=== PATIENT | male | born 1985 | race Caucasian/White ===

== ENCOUNTER 2024-01-04 16:24 | Inpatient (IN) | payer BC, SELFPAY ==
[2024-01-04] VITALS (9 sets, daily range): BP systolic 118–143; BP diastolic 71–92; BMI 38.5; BMI 37.6
--- NOTE | 2024-01-04 11:54 | ED.GENMED ---
History of Present Illness
<Evelyn Thakur PA-C - Last Filed: 01/04/24 18:14>
General
Chief Complaint: Skin Problem
Source: patient
Exam Limitations: none
Time Seen by Provider: 01/04/24 11:48
Nursing documentation reviewed up to this point in time: agreed with
Travel History
Have you had any contact with someone who has COVID-19?: No
Do you have any symptoms of coronavirus? Fever > 100 degrees, chills, cough, shortness of breath, sore throat, loss of taste or smell, muscle aches, or headache?: No
History of Present Illness
History of Present Illness:
Patient is a 38-year-old male presenting to the emergency department for evaluation of right lower leg pain and swelling. Patient reports initially noticed some pain in his right lower extremity yesterday with a few episodes of vomiting. He was
seen by a local urgent care without any skin findings and discharged. Patient says that today he woke up and noticed redness spreading around his right calf with a new patch popping up on his right medial thigh. He endorses significant fevers and
chills and pain in his right lower extremity. Patient denies any chest pain or shortness of breath. Patient denies any nausea or vomiting since yesterday. Patient denies any numbness/tingling in right lower extremity.
Patient has been taking doxycycline for the past week as prescribed by his PCP for suspected developing cellulitis
Patient reports significant history of cellulitis in his right lower extremity, requiring IV antibiotics on multiple occasions. Most recently�she was discharged from the hospital after 7 days of IV vancomycin/Rocephin for very similar right lower
extremity cellulitis.
Patient denies any current smoking or history of IV drug use. Patient is not a diabetic.
Patient does live in [place], [place] and is here visiting currently.
Review of Systems
<Evelyn Thakur PA-C - Last Filed: 01/04/24 18:14>
Review of Systems
Allergies reviewed?: Yes
All Other Systems: ROS reviewed and negative except as documented in HPI and ROS
Phy Exam
<Evelyn Thakur PA-C - Last Filed: 01/04/24 18:14>
Physical Exam
Physical Exam:
Vitals: Temp of 103.2, tachycardic to 129. Otherwise vital signs stable
General: Patient is diaphoretic, appears mildly uncomfortable.
Skin: Erythema of right lower leg extending from ankle to mid calf. 1 small area of erythema noted just above right knee on medial aspect of right thigh. Mild warmth and tenderness of right lower extremity noted.
Head: Normocephalic, atraumatic
Eyes: Sclera nonicteric. EOMs intact. No nystagmus. Pupils equal round and reactive light bilaterally
Throat: Protecting airway
Neck: Normal ROM, no cervical spine tenderness, no meningismus. Trachea midline
Cardiac: Regular rate and rhythm, no murmurs.
Pulm: Normal respiratory effort, no wheezes, rales, rhonchi heard on exam.
Abdomen: Abdomen soft. No abdominal tenderness.
Extremities: Erythematous rash as noted above. Bilateral upper and lower extremities atraumatic with full range of motion. great distal pulses in bilateral lower extremities with normal sensation.
Neuro: AAOx3. CN II-XII intact. No focal neurologic deficits.
Psychiatric: Normal affect.
Course
<Evelyn Thakur PA-C - Last Filed: 01/04/24 18:14>
Orders/Labs/Results
Orders:
Orders
01/04/24 Lunch
Regular
At Your Request: Full Participation
01/04/24 12:18
0.9% Sodium Chloride 1000 ml [Nss] 1,000 ml IV BOLUS
Ketorolac [Toradol] 15 mg IV NOW STA
01/04/24 12:22
Acetaminophen [Tylenol] 650 mg PO NOW STA
01/04/24 12:36
Complete Blood Count/With Diff Urgent
Comprehensive Metabolic Panel Urgent
Lactic Acid Q4H
Comment: CANCEL 2nd LACTIC ACID IF 1st LACTIC ACID IS LESS THAN 2
Blood Culture Q30M
SMITH Source: Blood/Venous
Specimen Description:
01/04/24 12:57
Blood Culture Q30M
SMITH Source: Blood/Venous
Specimen Description:
01/04/24 13:08
Vancomycin [Vancocin] 1,500 mg 0.9% Sodium Chloride [Nss] 20 ml 0.9% Sodium Chloride 250 ml [Nss] 250 ml IV NOW
01/04/24 13:47
Ketorolac [Toradol] 15 mg IV NOW STA
01/04/24 14:02
INFECTIOUS DISEASE CONSULT Routine
Consulting Provider: Monica Beckett
Was physician already notified: Yes
01/04/24 16:00
Admit/Transfer Patient As Directed
Co-Sign Provider:
Level of Care: Inpatient admission
Assign to:: Medical/Surgical
Physician / Group: Alberto shiists
Diagnosis: RLE cellulitis
Reason for Hospitalization: RLE Cellulitis - IV Abx and ID evaluation
Expected length of stay greater than two midnights?: Yes
ELOS- Estimated Length of Stay in days: 2
I certify the patient meets the requirements for IP care: Yes
01/04/24 16:11
Code Status As Directed
Resuscitation Status: Full Code
01/04/24 16:16
MRSA Screen Routine
SMITH Source: Nose
Specimen Description:
01/04/24 17:16
Acetaminophen [Tylenol] 650 mg PO Q6HPRN PRN
Bisacodyl [Dulcolax] 10 mg RECTAL [id number] PRN
Docusate W/Senna [Senokot-S] 1 tablet PO BIDPRN PRN
Ondansetron Injectable [Zofran] 4 mg IV Q6HPRN PRN
Tramadol HCl [Ultram] 50 mg PO Q6HPRN PRN
01/04/24 17:16
Activity As Directed
Activity Level: As Tolerated
Vital Signs As Directed
Frequency: Per unit guidelines
DX Deep Vein Thrombosis Video Routine
01/04/24 18:00
Enoxaparin Sodium [Lovenox] 40 mg SC QPM
01/05/24 06:00
Basic Metabolic Panel IN AM
Complete Blood Count/No Diff IN AM
Hemoglobin A1c [Glycohemoglobin (HgbA1c)] IN AM
Abnormal Lab Results
01/04/24
12:36
WBC 17.1 H 10^3/uL
(4.8-10.8)
MCH 31.4 H pg
(27.0-31.0)
Abs Immat Gran (auto) 0.1 H 10^3/uL
(0-0.05)
Absolute Neuts (auto) 15.0 H 10^3/uL
(1.4-6.5)
Absolute Lymphs (auto) 0.9 L 10^3/uL
(1.2-3.4)
Absolute Monos (auto) 1.2 H 10^3/uL
(0.1-0.6)
Neutrophils % 87.3 H %
(42.2-75.2)
Lymphocytes % 5.4 L %
(20.5-51.1)
Sodium 134 L mmol/L
(135-145)
Glucose 110 H mg/dl
(70-99)
ALT 77 H U/L
(0-50)
01/04/24 12:36
01/04/24 12:36
Vital Signs
Initial and Last Documented VS:
Initial Vital Signs
Temp Pulse Resp BP Pulse Ox
103.2 F H 129 20 138/92 97
01/04/24 11:27 06/18/24 11:27 01/04/24 11:27 01/04/24 11:27 01/04/24 11:27
Last Documented Vital Signs
Temp Pulse Resp BP Pulse Ox
98.5 F 88 16 132/83 97
01/04/24 17:13 01/04/24 17:13 01/04/24 17:13 01/04/24 17:13 01/04/24 17:30
<Wilson Medeiros DO - Last Filed: 01/04/24 12:52>
Orders/Labs/Results
Orders:
Orders
01/04/24 Lunch
Regular
At Your Request: Full Participation
01/04/24 12:18
0.9% Sodium Chloride 1000 ml [Nss] 1,000 ml IV BOLUS
Ketorolac [Toradol] 15 mg IV NOW STA
01/04/24 12:22
Acetaminophen [Tylenol] 650 mg PO NOW STA
01/04/24 12:36
Complete Blood Count/With Diff Urgent
Comprehensive Metabolic Panel Urgent
Lactic Acid Q4H
Comment: CANCEL 2nd LACTIC ACID IF 1st LACTIC ACID IS LESS THAN 2
Blood Culture Q30M
MSITH Source: Blood/Venous
Specimen Description:
01/04/24 12:57
Blood Culture Q30M
SMITH Source: Blood/Venous
Specimen Description:
01/04/24 13:08
Vancomycin [Vancocin] 1,500 mg 0.9% Sodium Chloride [Nss] 20 ml 0.9% Sodium Chloride 250 ml [Nss] 250 ml IV NOW
01/04/24 13:47
Ketorolac [Toradol] 15 mg IV NOW STA
01/04/24 14:02
INFECTIOUS DISEASE CONSULT Routine
Consulting Provider: Monica Beckett
Was physician already notified: Yes
01/04/24 16:00
Admit/Transfer Patient As Directed
Co-Sign Provider:
Level of Care: Inpatient admission
Assign to:: Medical/Surgical
Physician / Group: Alberto Castañeda - hospitalists
Diagnosis: RLE cellulitis
Reason for Hospitalization: RLE Cellulitis - IV Abx and ID evaluation
Expected length of stay greater than two midnights?: Yes
ELOS- Estimated Length of Stay in days: 2
I certify the patient meets the requirements for IP care: Yes
01/04/24 16:11
Code Status As Directed
Resuscitation Status: Full Code
01/04/24 16:16
MRSA Screen Routine
SMITH Source: Nose
Specimen Description:
01/04/24 17:16
Acetaminophen [Tylenol] 650 mg PO Q6HPRN PRN
Bisacodyl [Dulcolax] 10 mg RECTAL [id number] PRN
Docusate W/Senna [Senokot-S] 1 tablet PO BIDPRN PRN
Ondansetron Injectable [Zofran] 4 mg IV Q6HPRN PRN
Tramadol HCl [Ultram] 50 mg PO Q6HPRN PRN
01/04/24 17:16
Activity As Directed
Activity Level: As Tolerated
Vital Signs As Directed
Frequency: Per unit guidelines
DX Deep Vein Thrombosis Video Routine
01/04/24 18:00
Enoxaparin Sodium [Lovenox] 40 mg SC QPM
01/05/24 06:00
Basic Metabolic Panel IN AM
Complete Blood Count/No Diff IN AM
Hemoglobin A1c [Glycohemoglobin (HgbA1c)] IN AM
Abnormal Lab Results
01/04/24
12:36
WBC 17.1 H 10^3/uL
(4.8-10.8)
MCH 31.4 H pg
(27.0-31.0)
Abs Immat Gran (auto) 0.1 H 10^3/uL
(0-0.05)
Absolute Neuts (auto) 15.0 H 10^3/uL
(1.4-6.5)
Absolute Lymphs (auto) 0.9 L 10^3/uL
(1.2-3.4)
Absolute Monos (auto) 1.2 H 10^3/uL
(0.1-0.6)
Neutrophils % 87.3 H %
(42.2-75.2)
Lymphocytes % 5.4 L %
(20.5-51.1)
Sodium 134 L mmol/L
(135-145)
Glucose 110 H mg/dl
(70-99)
ALT 77 H U/L
(0-50)
01/04/24 12:36
01/04/24 12:36
Vital Signs
Initial and Last Documented VS:
Initial Vital Signs
Temp Pulse Resp BP Pulse Ox
103.2 F H 129 20 138/92 97
01/04/24 11:27 01/04/24 11:27 01/04/24 11:27 01/04/24 11:27 01/04/24 11:27
Last Documented Vital Signs
Temp Pulse Resp BP Pulse Ox
98.5 F 88 16 132/83 97
01/04/24 17:13 01/04/24 17:13 01/04/24 17:13 01/04/24 17:13 01/04/24 17:30
<Evelyn Thakur PA-C - Last Filed: 01/04/24 18:14>
MDM/Problems Addressed
Differential Diagnosis Includes:
Not limited to: Cellulitis, zoster, atopic dermatitis, contact dermatitis, fungal infection
MDM/Problems Addressed:
38-year-old male presenting with recurrent cellulitis requiring IV antibiotics of right lower extremity with associated fever and vomiting. Patient is febrile to 103.2 on arrival and tachycardic to 129. Physical exam as above. He is diaphoretic
and mildly uncomfortable appearing�although does appear nontoxic. There is erythema noted to his right lower extremity with some streaking up to right distal medial thigh. Some warmth and tenderness noted as well. Great distal pulses of right
lower extremity and sensation fully intact. Labs reviewed which show a leukocytosis of 17.1 with a left shift. No other clinically significant abnormalities. Given leukocytosis in setting of fever and likely cellulitis�will admit for IV
antibiotics. Blood cultures were sent. Patient given Tylenol for fever. IV fluids. Patient started on vancomycin. Infectious disease was consulted. Patient admitted and discussed with hospitalist.
Chronic conditions affecting care:
Recurrent cellulitis
Acute Exacerbation and/or Progression of Chronic Illness:
Cellulitis right lower leg
<Evelyn Thakur PA-C - Last Filed: 01/04/24 18:14>
*Pulse Oximetry
Patient hypoxic: no
*EKG
Interpreted by ED Provider?: NA
*Abrasive Mixer Interpretation
Rate: tachycardiac
Interpretation: normal
Heart Rate: 120
Rhythm: sinus
*Critical Care Note
Total Time (30-74mins, 75-104mins- exclusive of procedures): Not Applicable
<Evelyn Thakur PA-C - Last Filed: 01/04/24 18:14>
Patient Management
Discussion with other providers: Hospitalist and Industrial Economics Teacher (Infectious disease)
Escalation/DeEscalation of care consider admission/obs:
Admit for IV antibiotics
ED Attending Note
<Evelyn Thakur PA-C - Last Filed: 01/04/24 18:14>
-
Portions of this chart may have been created with voice recognition software.� Occasional wrong word or��sound alike� substitutions may have occurred due to the inherent limitations of voice recognition software.
<Wilson Medeiros DO - Last Filed: 01/04/24 12:52>
ED Attending Note
Patient seen and examined by attending physician: Yes
I performed the substantive portion of visit, reviewed & personally made and approve the management plan that is documented in note by myself or LATASHA.: Yes
ED Attending Note:
Patient is a 38-year-old male who presents to the emergency department with a 103 as well as redness on his right lower extremity. Patient has had this intermittently on his right lower leg for 8 years. Patient's had MRIs and other assessments
that does not show a reason. Patient is not diabetic. Patient stopped smoking about 8 years ago. Patient denies any trauma. Patient just finished being hospitalized for this in October. On physical exam patient does not appear to be in any
distress there is erythema on the right distal anterior thigh as well as the right lower leg. Given the patient's temperature and recent intravenous antibiotic patient will be admitted for cellulitis.
Discharge Plan
Departure
Patient Disposition: Admit
Date of Disposition: 01/04/24
Time of Disposition: 13:44
Presentation/result/management discussed w/ accepting MD/DO: Hospitalist
Discharge Problem:
Cellulitis of right lower extremity
Interventions
Interventions:
*Risk Screen - Suicide Last Done: 01/04/24 13:04
*General Assessment Last Done: 01/04/24 13:04
*Neglect/Abuse Screening Last Done: 01/04/24 13:04
ED- Fall Risk Assessment Last Done: 01/04/24 12:40
*ED COVID-19 Vaccine History Last Done: 01/04/24 11:27
*Nursing Disposition Last Done: 01/04/24 17:05
ED-Skin Assessment Last Done: 01/04/24 12:51
Discharge Date and Time
Discharge Date/Time: 01/04/24 17:05
[2024-01-04] MEDS: TYLENOL 650 MG PO (12:32)
[2024-01-04] MEDS: NSS 1000 IV (12:33)
[2024-01-04 12:57] LABS: Lactic Acid 1.5 mmol/L (0.7-2.0)
[2024-01-04 12:58] LABS: ALT (SGPT) 77 U/L (0-50); AST (SGOT) 43 U/L (17-59); Albumin 4.5 g/dl (3.5-5.0); Alkaline Phosphatase 71 U/L (38-126); Blood Urea Nitrogen 13 mg/dl (9-20); Calcium 9.5 mg/dl (8.4-10.2); Carbon Dioxide 25 mmol/L (22-30); Chloride 99 mmol/L (98-107); Estimated Creatinine Clearance > 125 ml/min; Glucose 110 mg/dl (70-99); Potassium 3.9 mmol/L (3.5-5.1); Sodium 134 mmol/L (135-145); Total Bilirubin 1.2 mg/dl (0.2-1.3); Total Protein 7.7 g/dl (6.3-8.2); eGFR > 60.00
[2024-01-04 13:05] LABS: % Basophils 0.1 % (0-2); % Immature Granulocytes 0.4 % (0-0.5); % Lymphocytes 5.4 % (20.5-51.1); % Monocytes 6.8 % (1.7-9.3); % Neutrophils 87.3 % (42.2-75.2); Absolute Immature Granulocytes 0.1 10^3/uL (0-0.05); Absolute Lymphocytes 0.9 10^3/uL (1.2-3.4); Absolute Monocytes 1.2 10^3/uL (0.1-0.6); Hematocrit 45.6 % (39.0-52.0); Mean Corp Hgb Conc. 35.1 g/dL (33.0-37.0); Mean Corpuscular Hgb 31.4 pg (27.0-31.0); Mean Corpuscular Volume 89.6 fL (80.0-94.0); Mean Platelet Volume 10.3 fL (7.4-10.4); Nucleated Red Blood Cells % 0 % (-); Platelet Count 217 10^3/uL (130-400); Red Blood Cell Count 5.09 10^6/uL (4.70-6.10); Red Cell Dist. Width 12.1 % (11.5-14.5); White Blood Cell Count 17.1 10^3/uL (4.8-10.8)
[2024-01-04] MEDS: TORADOL 15 MG IV (14:03)
[2024-01-04] MEDS: VANCOCIN 300 ML IV (14:04)
[2024-01-04] MEDS: VANCOCIN 300 MG IV (14:04)
--- NOTE | 2024-01-04 15:40 | HPS.HSE ---
Family Physician
-
Family Physician: * NONE
Chief Complaint
-
RLE redness swelling
History of Present Illness
38 y/o M, hx of recurrent RLE cellulitis, currently on Doxycycline by PCP (in [place]) presents to ER for RLE cellulitis. He is visiting family in [place]. He reports redness began a few days along lower RLE at his usual cellulitis spot but progressed up
his leg. He also reports some pain, swelling. Subjective fevers. no chills. No other complaints. Denies any trauma or work related injuries, no cuts or lesions he can recall.
Has previously had 5 prior episodes and has been worked up back in [place] with negative US and no clear etiology for his recurrent RLE cellulitis.
In ER here, given IV Abx and admitted.
Medical History
Past Medical History
Past Medical History: Reports Other (recurrent RLE cellulitis)
Past Surgical History: Reports None
Social History
Tobacco: Former Smoker (has not smoked in 7 years)
Alcohol: None
Drug: None
Personal:
Living: With Family
Employment: Employed ([employer])
Family History
Family History: Not pertinent
Allergies / Home Medications
Allergies reflects when Allergies were last updated in [facility].
Home Medications with original date entered in [facility]
Allergy/Medication List:
Allergies
Allergy/AdvReac Type Severity Reaction Status Date / Time
No Known Allergies Allergy Unverified 01/04/24 11:28
Home Medications
acetaminophen 325 mg tablet (Tylenol) 650 mg PO Q6HPRN PRN mild pain 01/04/24
doxycycline hyclate 100 mg tablet 100 mg PO BID 01/04/24
ondansetron 8 mg disintegrating tablet 8 mg PO Q8H 01/04/24
terbinafine HCl 250 mg tablet 250 mg PO DAILY 01/04/24
Review of Systems
-
A 12 point ROS was completed and negative except as noted: Yes
Physical Exam
Vital Signs
Vital Signs
Temp Pulse Resp BP Pulse Ox
99.3 F 93 22 118/83 96
01/04/24 14:07 01/04/24 15:00 01/04/24 15:00 01/04/24 15:00 01/04/24 15:00
Physical Exam
General: No Apparent Distress and Obese
HEENT: NormoCephalic and Anicteric
Respiratory: No Wheezes
Cardiac: S1/S2 and Regular Rhythm
GI: Soft and Non Tender
Musculoskeletal: Other (RLE cellulitis streaking to the R thigh)
Neuro: AO x 3
Hematologic/Lymphatic: No Lymphadenopathy
Psych: Calm
Laboratory Results
-
01/04/24 12:36
01/04/24 12:36
Laboratory Results
Lactic Acid Cancelled 01/04/24 16:30
Total Bilirubin 1.2 mg/dl (0.2-1.3) 01/04/24 12:36
AST 43 U/L (17-59) 01/04/24 12:36
ALT 77 U/L (0-50) H 01/04/24 12:36
Alkaline Phosphatase 71 U/L (38-126) 01/04/24 12:36
Data Reviewed
-
Lab Data: Labs Reviewed by me
Impression/Plan
-
Assessment:
Recurrent RLE cellulitis
- check MRSA
- follow blood cultures
- asked RN to edgardo cellulitis borders
- start Vancomycin
- start Ancef
- ID consult
Obesity d/t excess calories
- check A1c
- encourage weight loss f/u in [place]
DVT ppx: Lovenox
Code: Full
--- NOTE | 2024-01-04 16:06 | CON.ID ---
Consultation
-
Date/Time Consultation Requested: January 04, 2024 1400
Date/Time Consultation Performed: January 04, 2024 1600
Requesting Provider: Evelyn Thakur PA-c
Performing Provider: Dr. Monica Beckett
Reason for Consultation: Recurrent leg cellulitis
Chief Complaint / Past History
Chief Complaint
Fever and right leg redness
History of Present Illness
History obtained from the patient as well as from his at bedside. He is a 38-year-old male who is from [place], currently on vacation in [place] without significant past medical history except for recurrent cellulitis since 8 years ago. He
has had 5 episodes of right leg cellulitis, the last 3 since October 2023. In October he had severe right leg cellulitis hospitalized in [place] and received 7 days of Vancomycin + ceftriaxone x 7 days. Workup included peripheral venous ultrasound as
well as MRI of the leg, both of which were negative. He was discharged on doxycycline x 7 days. The cellulitis resolved. In early December, he again developed cellulitis on his right contreras. He saw his PCP on December 26 who prescribed doxycycline x 10
days. He also prescribed oral terbinafine for athlete's foot. The cellulitis initially did improve. However last night he developed fever with chills. This morning he noted that his right leg was red as well as a red patch on his right thigh.
He was still on the doxycycline. He went to urgent care then came to the ER today. Temperature 103. No history of lymphedema. No trauma. He does not shave his legs. No history of MRSA. 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 This
past Wednesday, he went to the beach and did go into the water.
Past History
Additional Past Medical History:
RLE recurrent cellulitis
Class III obesity BMI 38.5
Past Surgical History: None
Allergy History:
No Known Allergies Allergy (Unverified 01/04/24 11:28)
Medications Reviewed: Yes
Current Antibiotics:
Vancomycin
Social History
Tobacco: Former Smoker
Alcohol: None
Drug: None
Personal:
Living: With Family (, 3 year old child, few stray pets in [place])
Employment: Employed (student worker)
Family History
Family History: Not Pertinent
Review of Systems
Review of Systems
General: Fever, Chills and Change in Appetite
HEENT: Negative Sinus Problems, Headache or Pharyngitis
Cardiovascular: Negative Chest Pain or Dyspnea
Respiratory: Negative Dyspnea or Cough
Gasteroenterology: Negative Nausea, Vomiting or Other (no diarrhea)
Genital / Urological: Negative Dysuria or Flank Pain
Endocrine: Negative Weakness
Skin / Hair / Nails: Negative Pruritis
Neurological: Negative Headache or Dizziness
All systems: All other systems were reviewed and were negative
Vital Signs
Temp Pulse Resp BP Pulse Ox
99.3 F 93 22 118/83 96
01/04/24 14:07 01/04/24 15:00 01/04/24 15:00 01/04/24 15:00 01/04/24 15:00
Selected Entries
01/04/24
11:27
Temp 103.2 F H
Physical Exam
Physical Exam
Constitutional: No Acute Distress and Obese
Eyes: No Conjunctival Hemorrhage and Sclera Anicteric
Cardiovascular: Regular Rate and S1/S2
Pulmonary: Clear
Gastrointestinal: Soft, Non Tender, Non Distended and Normal Bowel Sounds
Genito-Urinary: Negative CVA Tenderness
Extremities: Erythema (Distal right contreras with erythema, serpiginous border. Right medial thigh, small patch erythema.); Negative Edema
Skin: Other (Scaly lesions in all toe webs. )
Neurological: AO x 3
Lab / Diagnostic Study Results
01/04/24 12:36
01/04/24 12:36
Abs Immat Gran (auto) 0.1 10^3/uL (0-0.05) H 06/18/24 12:36
Absolute Neuts (auto) 15.0 10^3/uL (1.4-6.5) H 01/04/24 12:36
Absolute Lymphs (auto) 0.9 10^3/uL (1.2-3.4) L 01/04/24 12:36
Absolute Monos (auto) 1.2 10^3/uL (0.1-0.6) H 01/04/24 12:36
Absolute Basos (auto) 0.0 10^3/uL (0-0.2) 01/04/24 12:36
Immature Gran % 0.4 % (0-0.5) 01/04/24 12:36
Neutrophils % 87.3 % (42.2-75.2) H 01/04/24 12:36
Lymphocytes % 5.4 % (20.5-51.1) L 01/04/24 12:36
Monocytes % 6.8 % (1.7-9.3) 01/04/24 12:36
Eosinophils % 0.0 % (0-6) 01/04/24 12:36
Basophils % 0.1 % (0-2) 01/04/24 12:36
Lactic Acid Cancelled 01/04/24 16:30
Microbiology Results
Micro:
01/04/24 12:57 Blood Culture - Pending
Blood/Venous
01/04/24 12:36 Blood Culture - Pending
Blood/Venous
Assessment / Plan
# Recurrent RLE cellulitis (3 within the 3 months).
# Fever, leukocytosis
- Suspect streptococcal cellulitis
- Follow blood cx's.
-DC Vancomycin
-Start cefazolin 2g IV q8h.
- Trend temps/wbc
# Tinea pedis
-DC terbinafine
- Apply topical miconazole nitrate.
--- NOTE | 2024-01-04 18:12 | TRANSFER ---
Received patient from ED via stretcher, patient ambulated self to bed. Patient assessed and oriented to room. VSS. AAOX3 med surg. Head to toe assessment done. Cellulitis noted on RLE and Right upper quad. Cellulitis is outlined in black marker from
ED. Dinner ordered. Medication given. Patient resting comfortably. Will continue to monitor.
[2024-01-04] MEDS: ANCEF 10 IV (18:18)
[2024-01-04] MEDS: LOVENOX 40 MG SC (18:18)
[2024-01-04] MEDS: ANTIFUNGAL CLEAR 1 APPLIC TOPICAL (20:07)
[2024-01-05] MEDS: ANCEF 10 IV ×3 (02:55→17:04)
--- NOTE | 2024-01-05 03:46 | DOWNTIME ---
There was a [employer] [facility] [employer] Downtime on 01/05/2024 from 0100 to 01/05/2024 at 0337. Downtime documentation of patient's care, including medication administrations, has been reconciled in the electronic record per guidelines. Refer to the
patient's paper chart under the miscellaneous tab to see printed paper medication records and downtime forms.
[2024-01-05 06:13] LABS: Hematocrit 43.6 % (39.0-52.0); Mean Corp Hgb Conc. 34.4 g/dL (33.0-37.0); Mean Corpuscular Hgb 31.2 pg (27.0-31.0); Mean Corpuscular Volume 90.6 fL (80.0-94.0); Mean Platelet Volume 10.3 fL (7.4-10.4); Platelet Count 212 10^3/uL (130-400); Red Blood Cell Count 4.81 10^6/uL (4.70-6.10); White Blood Cell Count 11.8 10^3/uL (4.8-10.8)
[2024-01-05 06:34] LABS: Blood Urea Nitrogen 14 mg/dl (9-20); Carbon Dioxide 23 mmol/L (22-30); Chloride 103 mmol/L (98-107); Estimated Creatinine Clearance > 125 ml/min; Glucose 94 mg/dl (70-99); Potassium 4.1 mmol/L (3.5-5.1); Sodium 135 mmol/L (135-145); eGFR > 60.00
[2024-01-05] MEDS: ANTIFUNGAL CLEAR 1 APPLIC TOPICAL ×2 (07:21→19:43)
[2024-01-05 07:47] VITALS: BP 139/88
--- NOTE | 2024-01-05 10:05 | W.PN.HOSP.TC ---
Today's Communication/Plan
-
continue IV Abx as per ID
Elevate LE with 2 pillows
await A1c
Assessment / Plan
Assessment / Plan
Assessment:
Sepsis POA (fever, leukocytosis, cellulitis)
Recurrent RLE cellulitis
- MRSA screen and blood cultures pending
- ID following; continue Ancef as felt likely to be strep
- Elevate LE with 2 pillows
- follow clinically
Tinea Pedis
- continue topical miconazole nitrate
Obesity d/t excess calories
- A1c: pending
- encourage weight loss f/u in [place]
DVT ppx: Lovenox
Code: Full
Anticipated Discharge: 24 - 48 hours
Subjective/Interval History
-
Date of Service: January 05, 2024
redness improving, less pain
no fever/chills
Objective Data
-
Labs:
Laboratory Results
01/05/24
05:25
WBC 11.8 H
Hgb 15.0
Hct 43.6
Plt Count 212
Sodium 135
Potassium 4.1
Chloride 103
Carbon Dioxide 23
BUN 14
Creatinine 0.8
Glucose 94
Calcium 9.0
Vital Signs:
Vital Signs
Temp Pulse Resp BP Pulse Ox
98.6 F 89 16 139/88 99
01/05/24 07:47 01/05/24 07:47 01/05/24 07:47 01/05/24 07:47 01/05/24 07:47
I&O
01/04/24 01/05/24 01/06/24
06:59 06:59 06:59
Intake Total 480 / 480
Balance 480 / 480
Physical Exam
-
General: No Apparent Distress
HEENT: Normocephalic and Atraumatic
Respiratory: Negative Wheezes or Rales
Cardiac: Regular Rhythm and S1/S2
GI: Soft
Genito-urinary: No Costovertebral Tender
Musculoskeletal: Other (cellulitis confined to marked borders, less raised and less erythema compared to 24 hours prior)
Neuro: AO x 3
Hematologic / Lymphatic: No Lymphadenopathy
Psych: Calm
Data Reviewed
-
Total Time Spent with Patient (in minutes): 41
Labs: Labs Reviewed by me
--- NOTE | 2024-01-05 11:37 | W.PN.ID1 ---
Date of Service
Date of Service: January 05, 2024
Today's Communication
Continue cefazolin.
Assessment / Plan
# Recurrent RLE cellulitis (3 within the past 3 months).
# Fever, leukocytosis: improving
- Suspect streptococcal cellulitis.
Cellulitis improving.
- Follow blood cx's.
- Continue cefazolin 2g IV q8h (d2)
- Trend temps/wbc
# Tinea pedis
- Continue topical miconazole nitrate.
Chief Complaint
-: Cellulitis
Subjective / Review of Systems
Cellulitis better.
Vital Signs / Physical Exam
Vital Signs
Vital Signs
Temp Pulse Resp BP Pulse Ox
98.6 F 89 16 139/88 99
01/05/24 07:47 01/05/24 07:47 01/05/24 07:47 01/05/24 07:47 01/05/24 07:47
Physical Exam
Constitutional: No Acute Distress and Comfortable
Extremities: Erythema (Right thigh and leg erythema receding from marked line); Negative Edema
Objective Data
Lab Data
Lab Results
01/05/24 05:25
01/05/24 05:25
Estimated Creat Clear > 125 ml/min 01/05/24 05:25
Lactic Acid Cancelled 01/04/24 16:30
Total Bilirubin 1.2 mg/dl (0.2-1.3) 01/04/24 12:36
AST 43 U/L (17-59) 01/04/24 12:36
ALT 77 U/L (0-50) H 01/04/24 12:36
Alkaline Phosphatase 71 U/L (38-126) 01/04/24 12:36
Most recent labs reviewed.
Micro Results:
01/04/24 18:49 MRSA Screen - Pending
Nose
01/04/24 12:57 Blood Culture - Pending
Blood/Venous
01/04/24 12:36 Blood Culture - Pending
Blood/Venous
[2024-01-05 14:21] LABS: Glycohemoglobin (HgbA1c) 5.4 % (4.0-5.6)
[2024-01-05 15:15] VITALS: BP 130/72
--- NOTE | 2024-01-05 16:37 | CM ---
Alert awake oriented patient who lives with his Sarah visiting from [place].He is here with cellulitis. He is independent in driving and in all activities of daily living.He was offered VN he declined need.
No VN hx / No SNF history
Pharmacy [facility]
PCP DR Ysabel Alatorre
PLAN Home Declined VN
[2024-01-05] MEDS: LOVENOX 40 MG SC (17:04)
[2024-01-05 23:00] VITALS: BP 137/88
[2024-01-06] MEDS: ANCEF 10 IV ×2 (02:09→10:07)
[2024-01-06 05:44] LABS: % Basophils 0.3 % (0-2); % Eosinophils 2.9 % (0-6); % Immature Granulocytes 0.4 % (0-0.5); % Lymphocytes 23.9 % (20.5-51.1); % Monocytes 15.4 % (1.7-9.3); % Neutrophils 57.1 % (42.2-75.2); Absolute Eosinophils 0.3 10^3/uL (0-0.7); Absolute Lymphocytes 2.3 10^3/uL (1.2-3.4); Absolute Monocytes 1.5 10^3/uL (0.1-0.6); Absolute Neutrophils 5.6 10^3/uL (1.4-6.5); Hematocrit 42.5 % (39.0-52.0); Hemoglobin 15.2 g/dL (13.0-18.0); Mean Corp Hgb Conc. 35.8 g/dL (33.0-37.0); Mean Corpuscular Hgb 31.5 pg (27.0-31.0); Mean Corpuscular Volume 88.2 fL (80.0-94.0); Mean Platelet Volume 9.8 fL (7.4-10.4); Nucleated Red Blood Cells % 0 % (-); Platelet Count 215 10^3/uL (130-400); Red Blood Cell Count 4.82 10^6/uL (4.70-6.10); Red Cell Dist. Width 12.1 % (11.5-14.5); White Blood Cell Count 9.8 10^3/uL (4.8-10.8)
[2024-01-06 06:08] LABS: Blood Urea Nitrogen 15 mg/dl (9-20); Carbon Dioxide 28 mmol/L (22-30); Chloride 103 mmol/L (98-107); Estimated Creatinine Clearance > 125 ml/min; Glucose 92 mg/dl (70-99); Potassium 3.9 mmol/L (3.5-5.1); Sodium 140 mmol/L (135-145); eGFR > 60.00
[2024-01-06 07:00] VITALS: BP 116/77
[2024-01-06] MEDS: ANTIFUNGAL CLEAR 1 APPLIC TOPICAL (08:38)
--- NOTE | 2024-01-06 10:37 | W.PN.ID1 ---
Date of Service
Date of Service: January 06, 2024
Today's Communication
Transition cefazolin 2g IV q8h (d3) to cephalexin 1000mg po qid through 01/17/24
Assessment / Plan
# Recurrent RLE cellulitis (3 within the past 3 months).
# Fever, leukocytosis: resolved
- Suspect streptococcal cellulitis.
Cellulitis improving.
- blood cx's neg tod ate
- Transition cefazolin 2g IV q8h (d3) to cephalexin 1000mg po qid through 01/17/24
# Tinea pedis
- Continue topical miconazole nitrate.
Chief Complaint
-: Cellulitis
Subjective / Review of Systems
Continues to improve
Vital Signs / Physical Exam
Vital Signs
Vital Signs
Temp Pulse Resp BP Pulse Ox
98.0 F 60 16 116/77 98
01/06/24 07:00 01/06/24 07:00 01/06/24 07:00 01/06/24 07:00 01/06/24 07:00
Physical Exam
Constitutional: No Acute Distress and Comfortable
Cardiovascular: Regular Rate and S1/S2
Gastrointestinal: Soft, Non Tender and Non Distended
Extremities: Other (RLE: erythema decreasing ); Negative Edema
Objective Data
Lab Data
Lab Results
01/06/24 05:22
01/06/24 05:22
Estimated Creat Clear > 125 ml/min 01/06/24 05:22
Lactic Acid Cancelled 01/04/24 16:30
Total Bilirubin 1.2 mg/dl (0.2-1.3) 01/04/24 12:36
AST 43 U/L (17-59) 01/04/24 12:36
ALT 77 U/L (0-50) H 01/04/24 12:36
Alkaline Phosphatase 71 U/L (38-126) 01/04/24 12:36
Most recent labs reviewed.
Micro Results:
01/04/24 18:49 MRSA Screen - Final
Nose No Methicillin Resistant Staphylococcus aureus isolated.
01/04/24 12:57 Blood Culture - Preliminary
Blood/Venous No Growth in 24 hours- Final report to follow
01/04/24 12:36 Blood Culture - Preliminary
Blood/Venous No Growth in 24 hours- Final report to follow
Care Review
Plan reviewed with: Physician (Dr. Castañeda)
--- NOTE | 2024-01-06 11:57 | W.PN.HOSP.TC ---
Today's Communication/Plan
-
dc home
Assessment / Plan
Assessment / Plan
Assessment:
Sepsis POA (fever, leukocytosis, cellulitis)
Recurrent RLE cellulitis
- MRSA screen and blood cultures NGTD
- d/w ID: dc on cephalexin 1000mg po qid through 01/17/24
Tinea Pedis
- continue topical miconazole nitrate
Obesity d/t excess calories
- A1c: 5.4%
- encourage weight loss f/u in [place]
DVT ppx: Lovenox
Code: Full
More than 30 minutes spent in discharge including
Final examination of the patient
Summarizing hospital stay
Instructions for continuing care to all relevant caregivers
Preparation of discharge records, prescriptions, and referral forms
Total time spent (in minutes): 41
Anticipated Discharge: Today
Subjective/Interval History
-
Date of Service: January 06, 2024
cellulitis improving
Objective Data
-
Labs:
Laboratory Results
01/06/24
05:22
WBC 9.8
Hgb 15.2
Hct 42.5
Plt Count 215
Sodium 140
Potassium 3.9
Chloride 103
Carbon Dioxide 28
BUN 15
Creatinine 0.8
Glucose 92
Calcium 9.0
Vital Signs:
Vital Signs
Temp Pulse Resp BP Pulse Ox
98.0 F 60 16 116/77 98
01/06/24 07:00 01/06/24 07:00 01/06/24 07:00 01/06/24 07:00 01/06/24 07:00
I&O
01/05/24 01/06/24 01/07/24
06:59 06:59 06:59
Intake Total 480 / 480 1020 / 1020
Balance 480 / 480 1020 / 1020
Physical Exam
-
General: No Apparent Distress
HEENT: Normocephalic and Atraumatic
Respiratory: Negative Wheezes
Cardiac: Regular Rhythm and S1/S2
GI: Soft and Nontender
Musculoskeletal: No Edema
Neuro: AO x 3
Hematologic / Lymphatic: No Lymphadenopathy
Psych: Calm
Data Reviewed
-
Total Time Spent with Patient (in minutes): 41
Labs: Labs Reviewed by me
--- NOTE | 2024-01-06 12:10 | W.DS.TRANS ---
DC Summary - Coke Wheeler
-
Discharge Instructions:
Discharge Diagnosis/Procedures RLE Cellulitis
Diet Regular
Activity As tolerated
Bathing Restrictions None
Instructions:
Stand-Alone Forms:
Changes to Home Medications: No
Discharge Medications:
DC Medications w/original date entered in [facility]
acetaminophen 325 mg tablet (Tylenol) 650 mg PO Q6HPRN PRN mild pain 01/04/24
ondansetron 8 mg disintegrating tablet 8 mg PO Q8H nausea 01/04/24
terbinafine HCl 250 mg tablet 250 mg PO DAILY fungal infection 01/04/24
cephalexin 500 mg capsule 1,000 mg (2 x 500 mg) PO QID #96 caps 01/06/24
Home Medication Changes
Pending Results: No
Total time spent discharging patient (in min): 41
--- NOTE | 2024-01-06 12:17 | CM ---
entered order for discahrge.
Sarah will drive him home today .
Offered VN declined needs
PLAN Home no needs
[2024-01-06 12:48] VITALS: BP 128/84
== END 2024-01-06 12:52 | disposition home or self-care (01) | DRG 872 ==
LOC: 3 WEST ACU 16:24
PROVIDERS: Physician Assistant; ADMITTING PHYSICIAN Internal Medicine; CONSULT PHYSICIAN Internal Medicine Infectious Disease; EMERGENCY PHYSICIAN Emergency Medicine
DX: A41.9 Sepsis, unspecified organism (principal); L03.115 Cellulitis of right lower limb; E66.01 Morbid (severe) obesity due to excess calories; Z68.38 Body mass index [BMI] 38.0-38.9, adult; B35.3 Tinea pedis
CPT/HCPCS: 80048; 80053; 83036; 83605; 85025; 85027; 87040; 87070; 96365; 96366; 96375; 99285